=== PATIENT | male | born 1975 | race African-American/Black ===

== ENCOUNTER 2022-11-19 14:38 | Inpatient (IN) | payer OTHER ==
[2022-11-19 16:32] VITALS: BMI 24.2
[2022-11-19] MEDS ORDERED: NALOXONE HCL (KLOXXADO) 8 MG SPRAY NS PRN (19:46)
[2022-11-19] MEDS ORDERED: ACETAMINOPHEN 325 MG TABLET (FP) PO PRN (19:46)
[2022-11-19] MEDS ORDERED: BENZONATATE 200 MG CAPSULE PO PRN (19:46)
[2022-11-19] MEDS ORDERED: hydrOXYzine PAMOATE 25 MG CAPSULE (FP) PO PRN (19:46)
[2022-11-19] MEDS ORDERED: MAGNESIUM HYDROX 2400MG/30ML ORAL SUSPENSION 30 ML CUP PO PRN (19:46)
[2022-11-19] MEDS ORDERED: MAG HYDROX/AL HYDROX/SIMETH 30 ML UNIT-DOSE CUP PO PRN (19:46)
[2022-11-19] MEDS ORDERED: BENZOCAINE/MENTHOL (CHLORASEPTIC ) LOZENGE MM PRN (19:46)
[2022-11-19] MEDS ORDERED: AMMONIUM LACTATE 12% LOTION 225 GM BOTTLE TP PRN (19:46)
[2022-11-19] MEDS ORDERED: IBUPROFEN 400 MG TABLET (FP) PO PRN (19:46)
[2022-11-19] MEDS ORDERED: NALOXONE HCL 0.4 MG/ML VIAL IM PRN (19:46)
[2022-11-19] MEDS ORDERED: COLLOIDAL OATMEAL 1 BAR EACH TP PRN (19:46)
[2022-11-19] MEDS ORDERED: guaiFENesin 600 MG TABLET.ER (FP) PO PRN (19:46)
[2022-11-19] MEDS ORDERED: LOPERAMIDE HCL 2 MG CAPSULE PO PRN (19:46)
[2022-11-19] MEDS ORDERED: IBUPROFEN 600 MG TABLET (FP) PO PRN (19:46)
[2022-11-19] MEDS ORDERED: POLYETHYLENE GLYCOL (HEALTHYLAX) 3350 17 GM PACKET PO PRN (19:46)
[2022-11-19] MEDS ORDERED: TUBERCULIN PPD 5 TU/0.1ML VIAL ID ONE (22:40)
[2022-11-19] MEDS: MELATONIN 5 MG TABLETS PO SCH (22:44)
[2022-11-19] MEDS: THIAMINE HCL 100 MG TABLET (FP) PO SCH (22:44)
[2022-11-20] MEDS: PRENATAL VITAMINS W/ FOLIC ACID TABLET (FP) PO SCH (10:27)
[2022-11-20] MEDS ORDERED: PALIPERIDONE PALMITATE (INVEGA) 234 MG/1.5 ML SYRINGE IM ONE (11:00)
[2022-11-20] MEDS: SERTRALINE HCL 25 MG TABLET (FP) PO SCH (11:11)
[2022-11-20] MEDS: THIAMINE HCL 100 MG TABLET (FP) PO SCH (21:16)
[2022-11-20] MEDS: MELATONIN 5 MG TABLETS PO SCH (21:16)
[2022-11-20] MEDS: diphenhydrAMINE HCL 50 MG CAPSULE PO SCH (21:16)
[2022-11-20] MEDS: OLANZapine 10 MG TABLET PO SCH (21:16)
[2022-11-21] MEDS: SERTRALINE HCL 25 MG TABLET (FP) PO SCH (09:14)
[2022-11-21] MEDS: PRENATAL VITAMINS W/ FOLIC ACID TABLET (FP) PO SCH (09:14)
[2022-11-21 10:26] LABS: POTASSIUM 4.3 mmol/L (3.5-5.1)
[2022-11-21 10:34] LABS: BLOOD UREA NITROGEN 8.3 mg/dL (7-18)
[2022-11-21 10:36] LABS: ALBUMIN 3.4 g/dl (3.4-5.0)
[2022-11-21 10:38] LABS: CREATININE 1.2 mg/dL (0.55-1.3)
[2022-11-21 10:40] LABS: BILIRUBIN,TOTAL 0.3 mg/dL (0.2-1); TOT PROT 7.1 g/dl (6.4-8.2)
[2022-11-21 10:49] LABS: HEMATOCRIT 46.2 % (35.4-49); HEMOGLOBIN 15.3 GM/dL (11.7-16.9); MCH 30.4 pg (25.7-33.7); MCHC 33.2 g/dl (32.0-35.9); MEAN CELL VOLUME 91.6 fl (80-96); MEAN PLT VOLUME 8.7 fl (7.5-11.1); PLATELET COUNT 270 10^3/uL (134-434); RBC 5.05 M/mm3 (4.00-5.60); RDW 13.8 % (11.9-15.9); WHITE BLOOD COUNT 6.5 K/mm3 (4.0-10.0)
[2022-11-21 10:50] LABS: URINE APPEARANCE CLEAR; URINE BILIRUBIN NEGATIVE (NEGATIVE); URINE COLOR YELLOW; URINE GLUCOSE (UA) NEGATIVE (NEGATIVE); URINE KETONE NEGATIVE (NEGATIVE); URINE LEUK ESTERASE NEGATIVE (NEGATIVE); URINE NITRITE NEGATIVE (NEGATIVE); URINE PROTEIN NEGATIVE (NEGATIVE); URINE UROBILINOGEN 0.2 mg/dL (0.2-1.0)
[2022-11-21 10:55] LABS: SYPHILIS W/ RPR CONF NON-REACTIVE (NONREACTIVE)
[2022-11-21] MEDS ORDERED: PNEUMOC 20-VAL CONJ-DIP CRM/PF 0.5 ML SYRINGE IM ONE (12:00)
[2022-11-21] MEDS: THIAMINE HCL 100 MG TABLET (FP) PO SCH (21:45)
[2022-11-21] MEDS: diphenhydrAMINE HCL 50 MG CAPSULE PO SCH (21:45)
[2022-11-21] MEDS: OLANZapine 10 MG TABLET PO SCH (21:45)
[2022-11-21] MEDS: MELATONIN 5 MG TABLETS PO SCH (21:45)
[2022-11-22] MEDS: PRENATAL VITAMINS W/ FOLIC ACID TABLET (FP) PO SCH (10:16)
[2022-11-22] MEDS: SERTRALINE HCL 25 MG TABLET (FP) PO SCH (10:17)
[2022-11-22] MEDS: THIAMINE HCL 100 MG TABLET (FP) PO SCH (21:34)
[2022-11-22] MEDS: OLANZapine 10 MG TABLET PO SCH (21:34)
[2022-11-22] MEDS: MELATONIN 5 MG TABLETS PO SCH (21:34)
[2022-11-22] MEDS: diphenhydrAMINE HCL 50 MG CAPSULE PO SCH (21:34)
[2022-11-23] MEDS: SERTRALINE HCL 25 MG TABLET (FP) PO SCH (09:40)
[2022-11-23] MEDS: PRENATAL VITAMINS W/ FOLIC ACID TABLET (FP) PO SCH (09:40)
[2022-11-23] MEDS: diphenhydrAMINE HCL 50 MG CAPSULE PO SCH (21:11)
[2022-11-23] MEDS: THIAMINE HCL 100 MG TABLET (FP) PO SCH (21:11)
[2022-11-23] MEDS: OLANZapine 10 MG TABLET PO SCH (21:11)
[2022-11-23] MEDS: MELATONIN 5 MG TABLETS PO SCH (21:11)
[2022-11-24 06:59] VITALS: RESP 17
[2022-11-24] MEDS: PRENATAL VITAMINS W/ FOLIC ACID TABLET (FP) PO SCH (10:04)
[2022-11-24] MEDS: SERTRALINE HCL 25 MG TABLET (FP) PO SCH (10:04)
[2022-11-24] MEDS ORDERED: PNEUMOC 20-VAL CONJ-DIP CRM/PF 0.5 ML SYRINGE IM ONE (12:00)
[2022-11-24] MEDS: THIAMINE HCL 100 MG TABLET (FP) PO SCH (21:05)
[2022-11-24] MEDS: OLANZapine 10 MG TABLET PO SCH (21:05)
[2022-11-24] MEDS: MELATONIN 5 MG TABLETS PO SCH (21:05)
[2022-11-24] MEDS: diphenhydrAMINE HCL 50 MG CAPSULE PO SCH (21:05)
[2022-11-25 07:16] VITALS: BP 128/76; PULSE 82; TEMP 97.3
[2022-11-25] MEDS: PRENATAL VITAMINS W/ FOLIC ACID TABLET (FP) PO SCH (11:07)
[2022-11-25] MEDS: SERTRALINE HCL 25 MG TABLET (FP) PO SCH (11:07)
[2022-11-25] MEDS ORDERED: NICOTINE POLACRILEX 4 MG GUM BUC PRN (14:19)
[2022-11-25] MEDS ORDERED: NICOTINE 14 MG/24 HOURS TOPICAL PATCH TD SCH (15:00)
== END 2022-11-25 15:22 | disposition home or self-care (01) | DRG 772 ==
LOC: YASAS 14:38 → Y3W 19:52
PROVIDERS: ADMIT Allergy & Immunology; ATTEND Psychiatry & Neurology Pain Medicine
PROC: HZ42ZZZ Group Counseling for Substance Abuse Treatment, Cognitive-Behavioral (ICD-10-PCS; principal; 2022-11-19)
DX: F14.20 Cocaine dependence, uncomplicated (principal); F10.10 Alcohol abuse, uncomplicated; F12.20 Cannabis dependence, uncomplicated; F25.0 Schizoaffective disorder, bipolar type; F19.24 Other psychoactive substance dependence with psychoactive substance-induced mood disorder; F41.9 Anxiety disorder, unspecified; Z20.822 Contact with and (suspected) exposure to COVID-19; Z28.310 Unvaccinated for COVID-19; Z28.9 Immunization not carried out for unspecified reason
CPT/HCPCS: 36415; 80053; 81003; 85027; 86780; 86803; 87635; 90677; J2426